=== PATIENT | female | born 1990 | race Caucasian/White ===

== ENCOUNTER 2020-06-03 23:55 | Emergency (ER) | payer SELFPAY ==
[2020-06-04] MEDS ORDERED: ONDANSETRON 4 MG TAB.RAPDIS PO ONE (01:42)
[2020-06-04] MEDS ORDERED: ACETAMINOPHEN 325 MG TABLET PO ONE (01:42)
--- NOTE | 2020-06-04 01:45 | ER Document Report ---
ED Medical Screen (RME) - General Chief Complaint: Cat Bite Stated Complaint: BITE Time Seen by Provider: 06/04/20 01:34 Mode of Arrival: Wheelchair Information source: Patient Notes: 30-year-old female patient presenting to the emergency department after being bitten by her cat this morning. Patient reports she had taken her cat to the vet to get shots when the cat bit her in the face and called her in the head. She reports she went to an urgent care who prescribed her Augmentin. Patient reports she had 1 dose of this at 9:00 tonight. She states that she is having pain on the side of her face and nausea. She is concerned that she may be getting septic. Patient denies any fever or chills but states that due to her fibromyalgia she usually cannot tell if she has a fever. Patient also requesting a Covid test as she reports that she has a sore throat, she is not sure if she was exposed to anyone with Covid or if perhaps for sore throat was because she has been upset all day emotionally. Bite ferrell consistent with a cat bite to patient's left cheek. I have greeted and performed a rapid initial assessment of this patient. A comprehensive ED assessment and evaluation of the patient, analysis of test results and completion of the medical decision making process will be conducted by additional ED providers. I have specifically instructed the patient or family members with the patient to immediately return to any nursing staff should anything change in the patient's condition or with their chief complaint. Physical Exam - Vital signs Vitals: Temp Pulse Resp BP Pulse Ox 98.5 F 71 18 151/79 H 100 06/04/20 01:20 06/04/20 01:20 06/04/20 01:20 06/04/20 01:20 06/04/20 01:20 Course - Vital Signs Vital signs: Temp Pulse Resp BP Pulse Ox 98.5 F 71 18 151/79 H 100 06/04/20 01:20 06/04/20 01:20 06/04/20 01:20 06/04/20 01:20 06/04/20 01:20
[2020-06-04 02:30] LABS: ABSOLUTE EOSINOPHILS # (AUTO) 0.1 10^3/uL (0.0-0.6); ABSOLUTE LYMPHOCYTES (AUTO) 2.2 10^3/uL (0.5-4.7); ABSOLUTE MONOCYTES (AUTO) 0.5 10^3/uL (0.1-1.4); BASOPHILS % (AUTO) 0.5 % (0-2); EOSINOPHILS % (AUTO) 0.7 % (0-6); HEMATOCRIT 39.4 % (36.0-47.0); LYMPHOCYTES % (AUTO) 24.9 % (13-45); MEAN CORPUSCULAR HEMOGLOBIN 26.8 pg (27.0-33.4); MEAN CORPUSCULAR HGB CONC 33.1 g/dL (32.0-36.0); MEAN CORPUSCULAR VOLUME 81 fl (80-97); MONOCYTES % (AUTO) 5.8 % (3-13); PLATELET COUNT 275 10^3/uL (150-450); RED BLOOD COUNT 4.85 10^6/uL (3.72-5.28); RED CELL DISTRIBUTION WIDTH 13.5 % (11.5-14.0); SEGMENTED NEUTROPHILS % (AUTO) 68.1 % (42-78); TOTAL CELLS COUNTED % (AUTO) 100 %; WHITE BLOOD COUNT 8.8 10^3/uL (4.0-10.5)
[2020-06-04] MEDS ORDERED: PREDNISONE 20 MG TABLET PO ONE (03:28)
[2020-06-04] MEDS ORDERED: FAMOTIDINE 20 MG TABLET PO ONE (03:28)
--- NOTE | 2020-06-04 03:28 | ER Document Report ---
HPI - HPI Time Seen by Provider: 06/04/20 01:34 Pain Level: 3 Notes: 30-year-old female patient presenting to the emergency department after being bitten by her cat this morning. Patient reports she had taken her cat to the vet to get shots when the cat bit her in the face and called her in the head. She reports she went to an urgent care who prescribed her Augmentin. Patient reports she had 1 dose of this at 9:00 tonight. She states that she is having pain on the side of her face and nausea. She is concerned that she may be getting septic. Patient denies any fever or chills but states that due to her fibromyalgia she usually cannot tell if she has a fever. Patient also requesting a Covid test as she reports that she has a sore throat, she is not sure if she was exposed to anyone with Covid or if perhaps for sore throat was because she has been upset all day emotionally. - ROS Systems Reviewed and Negative: Yes All other systems reviewed and negative - REPRODUCTIVE LMP: 04/29/20 - DERM Notes: Cat bites left cheek Past Medical History - General Information source: Patient - Social History Smoking Status: Never Smoker Family History: Reviewed & Not Pertinent - Medical History Medical History: Other - Fibromyalgia Vertical Provider Document - CONSTITUTIONAL Notes: PHYSICAL EXAMINATION: GENERAL: Well-appearing, well-nourished and in no acute distress. HEAD: Atraumatic, normocephalic. EYES: Pupils equal round extraocular movements intact, conjunctiva are normal. ENT: Nares patent NECK: Normal range of motion LUNGS: No respiratory distress Musculoskeletal: Normal range of motion NEUROLOGICAL: Normal speech, normal gait. PSYCH: Normal mood, normal affect. SKIN: Multiple small puncture wounds to left cheek consistent with reported cat bite. Slight surrounding erythema. Course - Re-evaluation Re-evalutation: Otherwise healthy appearing 30-year-old female presenting after being bitten by her cat earlier today. She was seen at an urgent care and started on Augmentin. Patient is concerned that she may become septic. Patient has normal vital signs and did not have any fever today. CBC was obtained to ease the patient's mind, CBC unremarkable. Of note patient does have a 3 inch binder with her health history and it. Patient also requesting a Covid test as she does have some nasal congestion. Covid test will be performed and will be sent off to the lab. The patient's emergency department workup and current diagnosis were explained to the patient and or family. Follow-up instructions were provided. Medications if prescribed were discussed. Instructions for when to return to the emergency department including specific worrisome symptoms were discussed with the patient and/or family. - Vital Signs Vital signs: Temp Pulse Resp BP Pulse Ox 98.5 F 71 18 151/79 H 100 06/04/20 01:20 06/04/20 01:20 06/04/20 01:20 06/04/20 01:20 06/04/20 01:20 - Laboratory Results Result Diagrams: 06/04/20 02:20 Laboratory Results Interpreted: 06/04/20 02:20 MCH 26.8 L Critical Laboratory Results Reviewed: No Critical Results - Radiology Results Critical Radiology Results Reviewed: No Critical Results Discharge - Discharge Clinical Impression: Encounter for laboratory testing for COVID-19 virus Cat bite Qualifiers: Encounter type: initial encounter Qualified Code(s): W55.01XA - Bitten by cat, initial encounter Condition: Stable Disposition: HOME, SELF-CARE Additional Instructions: Take medications as prescribed. Take Benadryl 25 to 50 mg every 6 hours as needed for itching or hives. Continue taking the antibiotic prescribed by the primary care provider. Return if any new or worsening concerns. Prescriptions: Mupirocin [Bactroban 2% Ointment 22 gm] 1 applic TP TID #22 gm Prednisone [Deltasone 20 mg Tablet] 3 tab PO DAILY 5 Days #15 tablet Famotidine [Pepcid 20 mg Tablet] 20 mg PO BID #12 tablet
[2020-06-04] MEDS ORDERED: ONDANSETRON ODT 4 MG TAB (6 TAB/ER DISP) PO PRN (03:43)
[2020-06-04 04:07] VITALS: BP 143/68
== END 2020-06-04 03:40 | disposition home or self-care (01) ==
LOC: ER 23:55
DX: S00.87XA Other superficial bite of other part of head, initial encounter (principal); R11.0 Nausea; W55.01XA Bitten by cat, initial encounter; Y92.531 Health care provider office as the place of occurrence of the external cause; Z20.822 Contact with and (suspected) exposure to COVID-19; M79.7 Fibromyalgia
CPT/HCPCS: 99283; 36415; 85025; 87635; S0119; J7512; C9803